=== PATIENT | male | born 1935 | race Caucasian/White ===

== ENCOUNTER 2019-04-19 18:33 | Inpatient (IN) ==
[2019-04-19] MEDS ORDERED: fentaNYL 100 MCG/2 ML VIAL IV STA (19:50)
[2019-04-19] MEDS ORDERED: ONDANSETRON 4 MG/2 ML VIAL IV STA (19:50)
[2019-04-19 20:34] LABS: Basophils # 0.1 10*3/uL (0.0-0.2); Basophils % 0.5 % (0.0-0.8); Eosinophils % 0.2 % (0.00-10.9); Hematocrit 45.7 VOL% (42.0-52.0); Hemoglobin 14.9 GM/DL (14.0-18.0); Immature Granulocytes % 0.9 %; Immature Granulocytes Absolute 0.12 #; Lymphocytes # 1.2 10*3/uL (1.4-4.0); Lymphocytes % 8.4 % (21.2-54.2); Mean Corpuscular HGB Conc 32.6 GM/DL (32-36); Mean Corpuscular Volume 101.6 FL (87-102); Mean Platelet Volume 9.9 FL (9.6-12.0); Monocytes % 8.1 % (1.7-12.7); Neutrophils % 81.9 % (38.7-73.9); Platelet Count 141 T/CUMM (130-400); Red Cell Distribution Width 14.5 % (9.3-17.3); White Blood Count 13.7 T/CUMM (4-12)
[2019-04-19] MEDS ORDERED: ONDANSETRON 4 MG/2 ML VIAL IV PRN (20:34)
[2019-04-19 20:53] LABS: Albumin 3.9 G/DL (3.4-5.0); Bilirubin,Total 1.6 MG/DL (0.2-1.0); Calcium 9.1 MG/DL (8.5-10.1); Osmolality,Calculated 275.5 MOS/KG (273-304); Total Protein 7.3 G/DL (6.4-8.3)
[2019-04-19 20:55] LABS: PT Patient Result 10.4 SECS; Partial Thromboplastin Time 26.1 SECS (0-40)
[2019-04-19] MEDS: LACTATED RINGERS 1,000 ML IV SCH (22:35)
[2019-04-19] MEDS: fentaNYL 100 MCG/2 ML VIAL IV PRN (23:06)
[2019-04-19] MEDS: CARVEDILOL 3.125 MG TABLET PO SCH (23:07)
[2019-04-19] MEDS: POTASSIUM GLUCONATE 500 MG TABLET PO SCH (23:07)
[2019-04-20] MEDS: fentaNYL 100 MCG/2 ML VIAL IV PRN (05:52)
[2019-04-20] MEDS ORDERED: INDOCYANINE GREEN 25 MG VIAL IV ONE (06:30)
[2019-04-20] MEDS ORDERED: CLINDAMYCIN INJ 50 ML IV ONE (08:20)
[2019-04-20] MEDS ORDERED: BACITRACIN 50,000 UNIT VIAL ONE (08:23)
[2019-04-20] MEDS ORDERED: APIXABAN 2.5 MG TABLET PO SCH (09:00)
[2019-04-20] MEDS ORDERED: EPINEPHrine 1 MG/ML VIAL ONE (10:12)
[2019-04-20] MEDS ORDERED: DEXAMETHASONE 4 MG/1 ML VIAL ONE (10:12)
[2019-04-20] MEDS ORDERED: SEVOFLURANE 1 UNIT/15 MINUTE INH ONE (10:12)
[2019-04-20] MEDS ORDERED: ETOMIDATE 40 MG/20 ML VIAL IV ONE (10:12)
[2019-04-20] MEDS ORDERED: fentaNYL 100 MCG/2 ML VIAL ONE (10:12)
[2019-04-20] MEDS ORDERED: PROPOFOL 200 MG/20 ML VIAL IV ONE (10:12)
[2019-04-20] MEDS ORDERED: ONDANSETRON 4 MG/2 ML VIAL ONE (10:12)
[2019-04-20] MEDS ORDERED: ACETAMINOPHEN 1,000 MG/100 ML VIAL IV ONE (10:13)
[2019-04-20] MEDS ORDERED: LACTATED RINGERS 1,000 ML IV ONE (10:13)
[2019-04-20] MEDS ORDERED: SODIUM CHLORIDE 0.9% 100 ML IV ONE (10:13)
[2019-04-20] MEDS ORDERED: PHENYLEPHRINE 1 MG/10 ML SYRINGE IV ONE (10:13)
[2019-04-20 10:19] LABS: Apearance,Urine CLEAR (Clear); Bacteria,Urine Occasional /HPF (Few); Bilirubin,Urine Negative (Negative); Blood, Urine Small mg/dL (Negative); Glucose,Urine (UA) Negative (Negative); Ketones,Urine 5 mg/dL (Negative); Mucus,Urine Occasional /LPF (Occasional); Nitrite,Urine Negative (Negative); Protein,Urine 30 MG/DL; RBC,Urine 2 /HPF (0-4); Squamous Epithelial Cell,Urine Occasional /HPF (0-10); Urine Color Yellow (Yellow); Urine Specific Gravity 1.019 (1.001-1.035); Urine Urobilinogen < 2.0 EU/DL (0.2-1.0); WBC,Urine 2 /HPF (0-6)
[2019-04-20] MEDS: CLINDAMYCIN INJ 600 MG in PREMIX 1 EACH IV SCH ×3 (10:34→23:43)
[2019-04-20] MEDS: LACTATED RINGERS 1,000 ML IV SCH ×2 (10:35→20:20)
[2019-04-20] MEDS: FUROSEMIDE 40 MG TABLET PO SCH (11:30)
[2019-04-20] MEDS: CARVEDILOL 3.125 MG TABLET PO SCH ×2 (11:32→20:32)
[2019-04-20] MEDS: ALLOPURINOL 300 MG TABLET PO SCH (11:32)
[2019-04-20] MEDS: CYANOCOBALAMIN 500 MCG TABLET PO SCH (11:32)
[2019-04-20] MEDS: CHOLECALCIFEROL 5,000 UNIT TABLET PO SCH (11:32)
[2019-04-20] MEDS: GABAPENTIN 300 MG CAPSULE PO SCH (11:33)
[2019-04-20] MEDS: ROSUVASTATIN 10 MG TABLET PO SCH (11:33)
[2019-04-20] MEDS: MAGNESIUM OXIDE 400 MG TABLET PO SCH ×3 (11:33→20:32)
[2019-04-20] MEDS: POTASSIUM GLUCONATE 500 MG TABLET PO SCH ×2 (11:34→20:32)
[2019-04-20] MEDS ORDERED: MORPHINE 4 MG/1 ML VIAL IV PRN ×2 (16:44→16:47)
[2019-04-21 05:34] LABS: Basophils % 0.1 % (0.0-0.8); Hematocrit 36.3 VOL% (42.0-52.0); Immature Granulocytes % 0.7 %; Immature Granulocytes Absolute 0.09 #; Lymphocytes # 0.7 10*3/uL (1.4-4.0); Lymphocytes % 4.9 % (21.2-54.2); Mean Corpuscular HGB Conc 33.3 GM/DL (32-36); Mean Corpuscular Volume 102.8 FL (87-102); Mean Platelet Volume 10.6 FL (9.6-12.0); Monocytes % 8.6 % (1.7-12.7); Neutrophils % 85.7 % (38.7-73.9); Platelet Count 114 T/CUMM (130-400); Red Cell Distribution Width 14.6 % (9.3-17.3); White Blood Count 13.6 T/CUMM (4-12)
[2019-04-21 05:41] LABS: Hemoglobin 12.1 GM/DL (14.0-18.0); Red Blood Count 3.53 MC/CUMM (3.8-5.5)
[2019-04-21 05:43] LABS: Calcium 8.1 MG/DL (8.5-10.1); Osmolality,Calculated 278.7 MOS/KG (273-304)
[2019-04-21 05:58] LABS: Lymphocytes 4 % (20-55); Platelet Estimate Decreased; Polychromasia Few; Segmented Neutrophils 93 % (50-85); Total Cells Counted 100
[2019-04-21] MEDS: APIXABAN 2.5 MG TABLET PO SCH ×2 (06:04→21:53)
[2019-04-21] MEDS: ROSUVASTATIN 10 MG TABLET PO SCH (08:42)
[2019-04-21] MEDS: GABAPENTIN 300 MG CAPSULE PO SCH (08:43)
[2019-04-21] MEDS: ALLOPURINOL 300 MG TABLET PO SCH (08:43)
[2019-04-21] MEDS: FUROSEMIDE 40 MG TABLET PO SCH (08:43)
[2019-04-21] MEDS: POTASSIUM GLUCONATE 500 MG TABLET PO SCH ×2 (08:43→21:53)
[2019-04-21] MEDS: CHOLECALCIFEROL 5,000 UNIT TABLET PO SCH (08:43)
[2019-04-21] MEDS: CARVEDILOL 3.125 MG TABLET PO SCH ×2 (08:44→21:53)
[2019-04-21] MEDS: MAGNESIUM OXIDE 400 MG TABLET PO SCH ×3 (08:44→21:53)
[2019-04-21] MEDS: CYANOCOBALAMIN 500 MCG TABLET PO SCH (08:44)
[2019-04-21] MEDS: CLINDAMYCIN INJ 600 MG in PREMIX 1 EACH IV SCH ×2 (08:46→16:49)
[2019-04-21] MEDS: LACTATED RINGERS 1,000 ML IV SCH (11:07)
[2019-04-21] MEDS ORDERED: FLUCONAZOLE 150 MG TABLET PO ONE (12:08)
[2019-04-22] MEDS: CLOTRIMAZOLE/BETAMETHASONE CREAM 15 GM TUBE TOP SCH ×2 (01:26→09:24)
[2019-04-22] MEDS: CLINDAMYCIN INJ 600 MG in PREMIX 1 EACH IV SCH ×2 (01:26→09:22)
[2019-04-22] MEDS: LACTATED RINGERS 1,000 ML IV SCH ×2 (01:29→13:41)
[2019-04-22] MEDS: ROSUVASTATIN 10 MG TABLET PO SCH (09:20)
[2019-04-22] MEDS: CARVEDILOL 3.125 MG TABLET PO SCH (09:20)
[2019-04-22] MEDS: CHOLECALCIFEROL 5,000 UNIT TABLET PO SCH (09:20)
[2019-04-22] MEDS: FUROSEMIDE 40 MG TABLET PO SCH (09:21)
[2019-04-22] MEDS: APIXABAN 2.5 MG TABLET PO SCH (09:21)
[2019-04-22] MEDS: CYANOCOBALAMIN 500 MCG TABLET PO SCH (09:21)
[2019-04-22] MEDS: POTASSIUM GLUCONATE 500 MG TABLET PO SCH (09:21)
[2019-04-22] MEDS: MAGNESIUM OXIDE 400 MG TABLET PO SCH (09:21)
[2019-04-22] MEDS: GABAPENTIN 300 MG CAPSULE PO SCH (09:21)
[2019-04-22] MEDS: ALLOPURINOL 300 MG TABLET PO SCH (09:24)
[2019-04-22] MEDS ORDERED: FLUCONAZOLE 150 MG TABLET PO ONE (09:52)
[2019-04-22 11:05] VITALS: BP 122/61
[2019-04-22] MEDS ORDERED: MAGNESIUM HYDROXIDE SUSP 30 ML UDCUP PO PRN (13:40)
== END 2019-04-22 14:45 | DRG 470 ==
LOC: N.ED 18:33 → N.EDINP 20:33 → N.3E 21:00
PROVIDERS: ADMIT Family Medicine; ATTEND Family Medicine

== ENCOUNTER 2021-01-19 14:02 | Inpatient (IN) ==
[2021-01-19] MEDS ORDERED: methylPREDNISolone SOD SUC 125 MG/2 ML VIAL IV STA (14:58)
[2021-01-19] MEDS ORDERED: diphenhydrAMINE 50 MG/1 ML VIAL IV STA (14:58)
[2021-01-19 15:48] LABS: Bilirubin,Urine Negative (Negative); Blood, Urine Small mg/dL (Negative); Glucose,Urine (UA) Negative (Negative); Ketones,Urine Negative (Negative); Mucus,Urine Few /LPF (Occasional); Nitrite,Urine Negative (Negative); Protein,Urine 100 MG/DL; RBC,Urine 7 /HPF (0-4); Squamous Epithelial Cell,Urine Occasional /HPF (0-10); Urine Appearance Slightly Hazy (Clear); Urine Color Amber (Yellow); Urine Specific Gravity 1.021 (1.001-1.035); Urine Urobilinogen < 2.0 EU/DL (0.2-1.0); WBC,Urine 13 /HPF (0-6)
[2021-01-19] MEDS ORDERED: CLINDAMYCIN INJ 600 MG in PREMIX 1 EACH IV STA (15:59)
[2021-01-19] MEDS ORDERED: LEVOFLOXACIN INJ 500 MG in PREMIX 1 EACH IV STA (16:00)
[2021-01-19] MEDS ORDERED: ONDANSETRON 4 MG/2 ML VIAL IV PRN ×2 (16:27→19:50)
[2021-01-19] MEDS ORDERED: HYDROmorphone 2 MG/1 ML VIAL IV PRN (16:27)
[2021-01-19] MEDS ORDERED: ACETAMINOPHEN 325 MG TABLET PO PRN (19:50)
[2021-01-19] MEDS: MAGNESIUM CHLORIDE 64 MG TABLET PO SCH (21:10)
[2021-01-19] MEDS: DOCUSATE SODIUM 100 MG CAPSULE PO SCH (21:10)
[2021-01-19] MEDS: carvediloL 3.125 MG TABLET PO SCH (21:10)
[2021-01-19] MEDS: SODIUM CHLORIDE 0.9% 1,000 ML IV SCH (21:10)
[2021-01-19 22:51] LABS: INR 1.1; PT Patient Result 11.9 SECS (9.8-11.9)
[2021-01-19] MEDS: CLINDAMYCIN INJ 600 MG in PREMIX 1 EACH IV SCH (23:36)
[2021-01-19] MEDS: CLOTRIMAZOLE/BETAMETHASONE CREAM 15 GM TUBE TOP SCH (23:37)
[2021-01-20 06:00] LABS: Basophils % 0.1 % (0.0-0.8); Hematocrit 42.1 VOL% (42.0-52.0); Hemoglobin 13.8 GM/DL (14.0-18.0); Immature Granulocytes % 0.8 %; Immature Granulocytes Absolute 0.07 #; Lymphocytes # 0.8 10*3/uL (1.4-4.0); Lymphocytes % 9.5 % (21.2-54.2); Mean Corpuscular HGB Conc 32.8 GM/DL (32-36); Mean Corpuscular Volume 93.8 FL (87-102); Monocytes % 5.6 % (1.7-12.7); Platelet Count 239 T/CUMM (130-400); Red Blood Count 4.49 MC/CUMM (3.8-5.5); Red Cell Distribution Width 14.7 % (9.3-17.3); White Blood Count 8.3 T/CUMM (4-12)
[2021-01-20 06:19] LABS: Albumin 3.5 G/DL (3.4-5.0); Bilirubin,Total 2.2 MG/DL (0.2-1.0); Calcium 9.6 MG/DL (8.5-10.1); Osmolality,Calculated 269.2 MOS/KG (273-304); Potassium 4.1 MMOL/L (3.5-5.1); Total Protein 7.4 G/DL (6.4-8.2)
[2021-01-20] MEDS: SODIUM CHLORIDE 0.9% 1,000 ML IV SCH ×2 (09:18→10:51)
[2021-01-20] MEDS: CLINDAMYCIN INJ 600 MG in PREMIX 1 EACH IV SCH (09:19)
[2021-01-20] MEDS: metroNIDAZOLE INJ 500 MG in PREMIX 1 EACH IV SCH ×2 (09:28→16:40)
[2021-01-20] MEDS: GABAPENTIN 300 MG CAPSULE PO SCH (09:49)
[2021-01-20] MEDS: FUROSEMIDE 40 MG TABLET PO SCH (09:49)
[2021-01-20] MEDS: MAGNESIUM CHLORIDE 64 MG TABLET PO SCH ×3 (09:49→21:16)
[2021-01-20] MEDS: carvediloL 3.125 MG TABLET PO SCH ×2 (09:49→21:16)
[2021-01-20] MEDS: ROSUVASTATIN 10 MG TABLET PO SCH (09:49)
[2021-01-20] MEDS: PANTOPRAZOLE 40 MG TABLET PO SCH (09:50)
[2021-01-20] MEDS: DOCUSATE SODIUM 100 MG CAPSULE PO SCH ×2 (10:00→21:16)
[2021-01-20] MEDS ORDERED: LIDOCAINE 2% 5 ML VIAL ONE (11:44)
[2021-01-20] MEDS ORDERED: ETOMIDATE 40 MG/20 ML VIAL IV ONE (11:44)
[2021-01-20] MEDS ORDERED: ROCURONIUM 50 MG/5 ML VIAL IV ONE (11:44)
[2021-01-20] MEDS ORDERED: fentaNYL 100 MCG/2 ML VIAL ONE (11:45)
[2021-01-20] MEDS ORDERED: TISSUE ADHESIVE 1 EACH APPLICATOR TOP ONE (12:04)
[2021-01-20] MEDS ORDERED: BUPIVACAINE MPF 0.25% 30 ML VIAL ONE (12:04)
[2021-01-20] MEDS ORDERED: LIDOCAINE 1%/EPI INJ 20 ML VIAL ONE (12:05)
[2021-01-20] MEDS ORDERED: LACTATED RINGERS 1,000 ML IV SCH (13:00)
[2021-01-20] MEDS ORDERED: propofoL 200 MG/20 ML VIAL IV ONE (13:05)
[2021-01-20] MEDS ORDERED: SEVOFLURANE 1 UNIT/15 MINUTE INH ONE (13:05)
[2021-01-20] MEDS ORDERED: PHENYLEPHRINE 1 MG/10 ML SYRINGE IV ONE (13:06)
[2021-01-20] MEDS ORDERED: ONDANSETRON 4 MG/2 ML VIAL ONE (13:17)
[2021-01-20] MEDS ORDERED: ePHEDrine 50 MG/ML VIAL ONE (13:20)
[2021-01-20] MEDS ORDERED: SUGAMMADEX 200 MG/2 ML VIAL IV ONE (13:52)
[2021-01-20] MEDS ORDERED: LACTATED RINGERS 1,000 ML IV ONE (14:02)
[2021-01-20] MEDS ORDERED: HYDROmorphone 2 MG/1 ML VIAL IV PRN ×2 (14:46→14:56)
[2021-01-20] MEDS ORDERED: ONDANSETRON 4 MG/2 ML VIAL IV PRN ×2 (14:46→14:56)
[2021-01-20] MEDS ORDERED: ALBUTEROL/IPRATROPIUM 3 ML NEB RESP TX PRN (14:56)
[2021-01-20] MEDS: CLOTRIMAZOLE/BETAMETHASONE CREAM 15 GM TUBE TOP SCH ×2 (16:13→21:16)
[2021-01-20] MEDS ORDERED: LEVOFLOXACIN INJ 500 MG in PREMIX 1 EACH IV SCH (17:00)
[2021-01-21] MEDS: SODIUM CHLORIDE 0.9% 1,000 ML IV SCH ×2 (00:11→06:58)
[2021-01-21] MEDS: metroNIDAZOLE INJ 500 MG in PREMIX 1 EACH IV SCH ×2 (01:58→10:05)
[2021-01-21 05:43] LABS: Basophils % 0.3 % (0.0-0.8); Eosinophils % 0.4 % (0.00-10.9); Hematocrit 41.6 VOL% (42.0-52.0); Hemoglobin 13.2 GM/DL (14.0-18.0); Immature Granulocytes % 0.7 %; Immature Granulocytes Absolute 0.08 #; Lymphocytes # 1.6 10*3/uL (1.4-4.0); Lymphocytes % 14.6 % (21.2-54.2); Mean Corpuscular HGB Conc 31.7 GM/DL (32-36); Mean Corpuscular Volume 97.9 FL (87-102); Mean Platelet Volume 9.7 FL (9.6-12.0); Monocytes % 12.5 % (1.7-12.7); Neutrophils % 71.5 % (38.7-73.9); Platelet Count 209 T/CUMM (130-400); Red Blood Count 4.25 MC/CUMM (3.8-5.5); Red Cell Distribution Width 14.9 % (9.3-17.3); White Blood Count 11.3 T/CUMM (4-12)
[2021-01-21 06:11] LABS: Albumin 3.3 G/DL (3.4-5.0); Bilirubin,Total 1.6 MG/DL (0.2-1.0); Calcium 8.4 MG/DL (8.5-10.1); Osmolality,Calculated 275.7 MOS/KG (273-304); Potassium 3.8 MMOL/L (3.5-5.1); Total Protein 6.9 G/DL (6.4-8.2)
[2021-01-21 07:46] VITALS: BP 128/75
[2021-01-21] MEDS: GABAPENTIN 300 MG CAPSULE PO SCH (08:26)
[2021-01-21] MEDS: ROSUVASTATIN 10 MG TABLET PO SCH (08:28)
[2021-01-21] MEDS: MAGNESIUM CHLORIDE 64 MG TABLET PO SCH (08:29)
[2021-01-21] MEDS: PANTOPRAZOLE 40 MG TABLET PO SCH (08:29)
[2021-01-21] MEDS: FUROSEMIDE 40 MG TABLET PO SCH (08:30)
[2021-01-21] MEDS: carvediloL 3.125 MG TABLET PO SCH (08:30)
[2021-01-21] MEDS: DOCUSATE SODIUM 100 MG CAPSULE PO SCH (08:30)
[2021-01-21] MEDS: CLOTRIMAZOLE/BETAMETHASONE CREAM 15 GM TUBE TOP SCH (08:31)
== END 2021-01-21 14:08 | disposition home or self-care (01) | DRG 419 ==
LOC: N.ED 14:02 → N.EDINP 16:05 → N.3E 18:15
PROVIDERS: ADMIT Family Medicine; ATTEND Family Medicine